=== PATIENT | female | born 1995 | race African-American/Black ===

== ENCOUNTER 2023-06-29 11:29 | Outpatient (OUT) | payer OTHER, SELFPAY ==
--- NOTE | 2023-06-29 10:10 | US_ITS ---
The [address] [address] Patient Name: DAXA ARROYO MRN: [id number] date: 1995 Sex: F Assigned Patient Location: US Current Patient Location: US Accession/Order Number: [id number] Exam Date: 06/29/2023 10:30 Report Date: 06/29/2023 15:44 At the request of: MICHELET VILLAGRAN Procedure: US OB transvaginal EXAMINATION: US OB transvaginal HISTORY: MISSED MENSES COMPARISON: No relevant comparison available. FINDINGS: GESTATIONAL SAC: Present. YOLK SAC: Absent POLE: Absent CARDIAC: Absent UTERUS: Normal size and appearance. OVARIES: Right: Normal. Left: Normal. CERVIX: 3.6 cm in length and closed. CUL-DE-SAC: Normal. OTHER: None. AGE BY LMP: 8 weeks 5 days MISAEL BY LMP: 02/03/2024 AGE BY US CRL: Not applicable MISAEL BY US CRL: US/US OB transvaginal IMPRESSION: 1. Early intrauterine versus anembryonic . Dr. Villagran's nurse, Susana, was notified by training development specialist at time of imaging. Electronically authenticated by: MARLI SHARP Date: 06/29/2023 15:44
== END 2023-06-29 11:30 | disposition home or self-care (01) ==
LOC: US 11:30
PROVIDERS: Visit Provider Obstetrics & Gynecology
DX: N92.6 Irregular menstruation, unspecified (principal)
CPT/HCPCS: 76817

== ENCOUNTER 2023-07-12 11:25 | Outpatient (OUT) | payer OTHER, SELFPAY ==
--- NOTE | 2023-07-12 11:27 | US_ITS ---
[address] [address] Patient Name: DAXA ARROYO MRN: [id number] date: 1995 Sex: F Assigned Patient Location: US Current Patient Location: US Accession/Order Number: [id number] Exam Date: 07/12/2023 11:27 Report Date: 07/12/2023 22:40 At the request of: MICHELET VILLAGRAN Procedure: US OB transvaginal EXAMINATION: US OB transvaginal HISTORY: VIABILITY ; vaginal bleeding COMPARISON: Ultrasound OB transvaginal 06/29/2023 FINDINGS: GESTATIONAL SAC: Absent YOLK SAC: Absent POLE: Absent CARDIAC: Absent UTERUS: Normal size and appearance. OVARIES: Right: Normal. Left: Normal. CERVIX: 4.2 cm in length and closed. CUL-DE-SAC: Normal. OTHER: None. AGE BY LMP: 10 weeks 2 days MISAEL BY LMP: 02/05/2024 AGE BY US CRL: Not applicable MISAEL BY US CRL: US/US OB transvaginal IMPRESSION: 1. No intrauterine or suspicious adnexal findings. 2. Previously seen gestational sac is no longer present. Dr. Villagran was notified of these findings by the performance engineer at time of imaging. Electronically authenticated by: MARLI SHARP Date: 07/12/2023 22:40
== END 2023-07-12 11:26 | disposition home or self-care (01) ==
LOC: US 11:25
PROVIDERS: Visit Provider Obstetrics & Gynecology
DX: O20.0 Threatened abortion (principal); O36.80X0 Pregnancy with inconclusive fetal viability, not applicable or unspecified
CPT/HCPCS: 76817